=== PATIENT | female | born 2000 | race Caucasian/White ===

== ENCOUNTER 2020-08-23 10:24 | Outpatient (NON) | payer BC, SELFPAY ==
[2020-08-23 22:14] LABS: SARS-CoV-2 RNA PCR Negative
== END 2020-08-23 10:25 ==
LOC: ANHCOVIDDT 10:26
PROVIDERS: PCP Pediatrics; Visit Provider Family Medicine
DX: Z20.822 Contact with and (suspected) exposure to COVID-19 (principal); R05 Cough
CPT/HCPCS: C9803; U0003; U0005